=== PATIENT | female | born 1995 | race Hispanic/Latino ===

== ENCOUNTER 2016-04-10 17:03 | Emergency (ER) | payer OTHER ==
[~2016-04-10] VITALS: Ht 160 cm; Wt 112.7 kg
[~2016-04-10 17:03] MED LIST: AMIT100T2 PO; DULO30CA50 PO; LEVO1TAB8 PO; ONDA4TAB6 PO; PANT40TA2 PO; TIZA4TAB4 PO; TRAM50TA2 PO; [UNRECOGNIZED DRUG - CODE] PO
[2016-04-10 17:14] VITALS: BP 167/104; PULSE 95; RESP 15; O2SAT 100
--- NOTE | 2016-04-10 18:06 | ED.REPORT ---
HPI-Extremity Problem Upper Date of Service Apr 10, 2016 ED Provider: Prisca Garcia History of Present Illness: playing with pocket knife and cut left thumb palmar surface today about 1 hour ago. unknown tdap. [facility]. 04/23. right hand dominant Nursing Notes Stated Complaint: LACERATION TO L THUMB Chief Complaint: Laceration Nursing Notes Reviewed: Yes Allergies: Coded Allergies: Penicillins (Verified Allergy, Severe, rash, 04/10/16) latex (Verified Allergy, Mild, 04/10/16) Scheduled Amitriptyline (Amitriptyline) 100 Mg Tablet 100 MG PO HS Duloxetine (Duloxetine) 30 Mg Capsule.dr 30 MG PO DAILY Levonorgestrel/Ethinyl Estradiol (Aviane) 1 Each Tablet 1 TABLET PO DAILY Pantoprazole DR (Protonix) 40 Mg Tablet 40 MG PO DAILY Ropinirole ER (Requip XL) 2 Mg Tablet 2 MG PO DAILY Tizanidine (Tizanidine) 4 Mg Tablet 4 MG PO HS Scheduled PRN Ondansetron (Zofran) 4 Mg Tablet 4 MG PO Q4H PRN PRN For Nausea Tramadol (Tramadol) 50 Mg Tablet 50 MG PO Q4H PRN PRN For Pain General Time Seen by MD: 17:59 Chief Complaint Finger injury left 1 Hx Obtained From: Patient Onset Occurred: 1 - 4 hours ago Symptom Duration: Since onset Past Medical History Past Medical History Fibromyalgia Gastritis with hematemesis 12/2015 Past Surgical History Denies Smoking History Never Smoker Social History Alcohol Use: "Social" Drug Use: Denies drug use Occupation lives with Mom going to school 04/10/2016 Ambulatory Status Independent Review of Systems Basic Review of Systems Eyes: Vision NL, No discharge ENT: Hearing NL, No pain, No nasal congestion, No pharyngeal pain Respiratory: No shortness of breath, No cough, No wheeze Cardiovascular: No chest pain, No dyspnea on exertion, No orthopnea, No parox noct dyspnea, No palpitations GI: No abdominal pain, No anorexia, No nausea, No vomiting : No dysuria, No frequency Hematologic: No bleeding, No bruising Endocrine: No cold intolerance, No heat intolerance, No weight gain, No weight loss Allergy / Immune: No allergy Psychiatric: Normal thought content Physical Exam Initial Vital Signs Vital Signs (First) Date Time Temp Pulse Resp B/P Pulse Ox O2 Delivery O2 Flow Rate FiO2 1/28/17 17:14 36.9 95 15 167/104 100 Room Air Initial VS: Reviewed, Vital signs normal General/Constitutional: Well-developed, Well-nourished Head / Eyes: Atraumatic, Normocephalic, PERRL ENT: Mucous membranes moist, Conjunctiva normal, No scleral icterus Neck: Supple, Non-tender, Full range of motion Respiratory: Breath sounds normal, Clear to auscultation, No respiratory distress Cardiovascular: Regular rate & rhythm, Heart sounds normal, Intact distal pulses Abdomen / GI: Soft, Non-tender, No guarding, No rebound, No distention Back: No CVA tenderness Lymphatic: No lymphadenopathy Lower Extremities: Vascular intact, Neuro intact, No swelling, No tenderness Skin: Warm, Dry, No cyanosis Neurologic: Alert, Oriented, Nonfocal Psychiatric: Mood/affect normal, Behavior normal, Normal thought content General/Constitutional: Awake, Alert, No acute distress, Well appearing, Well developed, Well hydrated Respiratory / Chest: Atraumatic, Breath sounds NL, Breath sounds = bilat, No respiratory distress Cardiovascular: Heart rate NL, Regular rhythm, Heart sounds NL, No gallop Upper Extremity / MS: Atraumatic, Inspection NL, Full range of motion, No swelling left thumb has 1 cm laceration very superficial, no active bleeding. has full range of motion, cap refill less than 2 sec, sensation intact distally. Rash / Lesion Notes: 1 cm laceration on palmar aspect of thumb Procedures Laceration Management Time: 18:00 Procedure Performed by: Allied health pract Consent / Setup / Site Prep: Informed consent provided, Consent from patient Location of Wound: left palamar surface of thumb Wound Length: 1 cm Digital Block: No Wound Preparation: Normal saline Repair Skin: Dermabond Post-Procedure / Complications: No complications, Condition improved, Tolerated procedure well, Patient stable Re-Eval/Medical Decision Med Decision/Clinical Course patient with very superficial thumb laceration Discharge & Departure Impression: Primary Impression: Laceration Disposition: Home Patient Instructions: Finger Laceration (ED) Additional Instructions: The laceration was very superficial and has been repaired with dermabond. You have been updated on your tdap. Do not pick at the glue. It will fade in 5 to 7 days. The repair is waterproof and you can shower this evening. 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 Referrals: NOPCP (PCP) EDSupervising Provider for APC: Luis Stevenson MD copies to: Hector Olson MD, Sue ARNP Apr 10, 2016 18:06
[2016-04-10] MEDS ORDERED: Tissue Adhesive Liq (CS Supplied) TOPICAL ONE (18:15)
[2016-04-10] MEDS ORDERED: TdaP Vaccine 0.5 mL Inj IM ONE (18:15)
== END 2016-04-10 18:45 | disposition home or self-care (01) ==
LOC: SED 17:03
DX: S61.012A Laceration without foreign body of left thumb without damage to nail, initial encounter (principal); W26.0XXA Contact with knife, initial encounter; Y93.89 Activity, other specified; Y92.9 Unspecified place or not applicable; Y99.8 Other external cause status; Z88.0 Allergy status to penicillin; Z91.040 Latex allergy status; Z23 Encounter for immunization